=== PATIENT | female | born 1945 | race Caucasian/White ===

== ENCOUNTER → 2019-05-03 | Outpatient (CLI) | payer OTHER ==
[~2019-05-03] MED LIST: ALPHA LIPOIC A300 MG PO; CALCIUM500 MG PO; CENTRUM SILVER1 EAC4 PO; COQ-10100 MG PO; COSAMIN DS TAB1 EACH PO; CRESTOR10 MG PO; CYTOXAN50 MG IV; DOXORUBICIN IV; KLOR-CON 1010 MEQ PO; ONDANSETRON HCL4 M2 PO
== END | disposition home or self-care (01) ==
LOC: SJCVCIMAG 11:46 → CAT 11:46
DX: Z13.6 Encounter for screening for cardiovascular disorders (principal); R94.31 Abnormal electrocardiogram [ECG] [EKG]; I51.7 Cardiomegaly; I65.23 Occlusion and stenosis of bilateral carotid arteries; E78.00 Pure hypercholesterolemia, unspecified; I25.10 Atherosclerotic heart disease of native coronary artery without angina pectoris

== ENCOUNTER → 2020-02-01 | Outpatient (CLI) | payer OTHER | LOC: SJCVC 10:58 | PROVIDERS: ATTEND Internal Medicine Cardiovascular Disease | DX: I25.10 Atherosclerotic heart disease of native coronary artery without angina pectoris (principal); R93.1 Abnormal findings on diagnostic imaging of heart and coronary circulation; E78.00 Pure hypercholesterolemia, unspecified; I82.402 Acute embolism and thrombosis of unspecified deep veins of left lower extremity; I65.23 Occlusion and stenosis of bilateral carotid arteries; I10 Essential (primary) hypertension; Z79.899 Other long term (current) drug therapy ==

== ENCOUNTER → 2020-10-16 | Outpatient (CLI) | payer OTHER | LOC: SJCVC 13:00 | PROVIDERS: ATTEND Internal Medicine Cardiovascular Disease | DX: R93.1 Abnormal findings on diagnostic imaging of heart and coronary circulation (principal); I10 Essential (primary) hypertension; E78.00 Pure hypercholesterolemia, unspecified; I65.23 Occlusion and stenosis of bilateral carotid arteries; I82.402 Acute embolism and thrombosis of unspecified deep veins of left lower extremity; Z72.89 Other problems related to lifestyle; Z79.82 Long term (current) use of aspirin; Z79.899 Other long term (current) drug therapy; Z79.891 Long term (current) use of opiate analgesic; Z88.0 Allergy status to penicillin ==